=== PATIENT | female | born 1970 | race Caucasian/White ===

== ENCOUNTER 2019-07-13 23:38 | Emergency (ER) | payer BC, OTHER ==
[~2019-07-13] VITALS: Ht 160 cm; Wt 115.7 kg
[2019-07-14 00:21] LABS: ABSOLUTE NEUTROPHILS 4.9 thou/uL (1.4-8.2); BASOPHILS 0.2 % (0.0-2.0); EOSINOPHILS 1.7 % (0.0-3.0); HEMATOCRIT 40.8 % (37.0-47.0); HEMOGLOBIN 13.6 gm/dL (12.0-15.0); LYMPHOCYTES 29.7 % (24.0-44.0); MCH 27.8 pg (26.0-34.0); MCHC 33.2 g/dL (28.0-37.0); MCV 83.7 fL (80.0-100.0); MONOCYTES 8.3 % (1.0-8.0); PLATELET COUNT 270 thou/uL (150-400); POLYS 60.1 % (36.0-66.0); RBC 4.88 mil/uL (4.20-5.00); RDW 14.3 % (10.5-14.5); WBC 8.1 thou/uL (4.0-11.0)
[2019-07-14 00:28] LABS: CALCIUM 9.3 mg/dL (8.5-10.1); CREATININE 0.8 mg/dL (0.6-1.0); POTASSIUM 3.7 mmol/L (3.5-5.1)
[2019-07-14 01:21] VITALS: BP 168/85
== END 2019-07-14 01:24 | disposition home or self-care (01) ==
LOC: ER 23:38
PROVIDERS: Emergency Medicine
DX: N93.9 Abnormal uterine and vaginal bleeding, unspecified (principal); Z88.1 Allergy status to other antibiotic agents